=== PATIENT | female | born 1970 | race American Indian/Alaskan Native ===

== ENCOUNTER 2017-04-12 16:49 | Emergency (ER) | payer OTHER ==
[2017-04-12 16:59] VITALS: RESP 20
[2017-04-12] MEDS ORDERED: Sodium Chloride 0.9% 1,000 ML IV ONE (18:06)
--- NOTE | 2017-04-12 18:15 | C.PDOC ---
History Of Present Illness <Livia Burgess - Last Filed: 04/12/17 19:02> <Terrence Guevara - Last Filed: 04/12/17 20:17> 46 year old female presents to ED with complaints of vaginal bleeding for 14 days associated with pelvic cramping pain for 1 day. Patient states pain is worse on the left side and is non-radiating. Patient reports irregular menses for the last 3 months and is unsure of . She has history of fibroids and surgery. , LMP 12/2016. (Livia Burgess) History Per: Patient History/Exam Limitations: no limitations Onset/Duration Of Symptoms: Days Current Symptoms Are (Timing): Still Present Severity: Moderate Quality Of Discomfort: Cramping, "Pain" Associated Symptoms: denies: Fever, Chills, Nausea, Vomiting, Urinary Symptoms Alleviating Factors: None Recent travel outside of the [place]: No Abnormal Vaginal Bleeding: Yes <Livia Burgess - Last Filed: 04/12/17 19:02> <Terrence Guevara - Last Filed: 04/12/17 20:17> Time Seen by Provider: 04/12/17 18:06 Chief Complaint (Nursing): Abdominal Pain Past Medical History Reviewed: Historical Data, Nursing Documentation, Vital Signs - Medical History PMH: Hyperthyroidism Family History: States: Unknown Family Hx - Social History Hx Tobacco Use: No Hx Alcohol Use: Yes Hx Substance Use: Yes - Immunization History Hx Tetanus Toxoid Vaccination: No Hx Influenza Vaccination: No Hx Pneumococcal Vaccination: No <Livia Burgess - Last Filed: 04/12/17 19:02> Review Of Systems Constitutional: Negative for: Fever, Chills Gastrointestinal: Negative for: Nausea, Vomiting Genitourinary: Positive for: Vaginal Bleeding, Pelvic Pain. Negative for: Dysuria, Frequency, Hematuria <Livia Burgess - Last Filed: 04/12/17 19:02> Physical Exam - Physical Exam Appears: Non-toxic, No Acute Distress Skin: Warm, Dry, No Diaphoretic, No Pale, No Rash Head: Atraumatic, Normacephalic Eye(s): bilateral: Normal Inspection Nose: Normal Oral Mucosa: Moist Neck: Normal, Normal ROM, Supple Chest: Symmetrical Cardiovascular: Rhythm Regular, No Murmur Respiratory: Normal Breath Sounds, No Rales, No Rhonchi, No Wheezing Gastrointestinal/Abdominal: Normal Exam, Soft, No Tenderness, No Guarding, No Rebound Extremity: Bilateral: Atraumatic, Normal Color And Temperature, Normal ROM Neurological/Psych: Oriented x3, Normal Speech Gait: Steady <Livia Burgess - Last Filed: 04/12/17 19:02> ED Course And Treatment - Laboratory Results Result Diagrams: 04/12/17 18:41 O2 Sat by Pulse Oximetry: 96 (room air) Pulse Ox Interpretation: Normal <Livia Burgess - Last Filed: 04/12/17 19:02> - Laboratory Results Result Diagrams: 04/12/17 18:41 04/12/17 18:41 <Terrence Guevara - Last Filed: 04/12/17 20:17> Medical Decision Making <Livia Burgess - Last Filed: 04/12/17 19:02> <Terrence Guevara - Last Filed: 04/12/17 20:17> Medical Decision Making: Impression: 46 y.o female with pelvic pain Differential diagnosis includes but not limited to: cytitis, ectopic , ovarian cyst or torsion Plan: * Labs * Ultrasound * IV NS Progress: 1851 CBC shows normal H/H. UA shows negative Case signed out to Dr Guevara pending US, reassessment and dispo (Livia Burgess ) Upon provider reevaluation patient is feeling better, is medically stable, and requires no further treatment in the ED at this time. Patient will be discharged home with Rx for naproxen . Counseling was provided and all questions were answered regarding diagnosis and need for follow up dr jordan and technology risk intern. There is agreement to discharge plan. Return if symptoms persist or worsen. (Terrence Guevara) Disposition - Disposition Disposition Time: 19:03 - POA Present On Arrival: None <Livia Burgess - Last Filed: 04/12/17 19:02> Counseled Patient/Family Regarding: Studies Performed, Diagnosis, Need For Followup, Rx Given <Terrence Guevara - Last Filed: 04/12/17 20:17> - Disposition Referrals: Jamie Jordan MD [Medical Doctor] - Condition: FAIR Additional Instructions: Please follow up with your technology risk intern Prescriptions: Naproxen [Naprosyn] 1 tab PO BID PRN #25 tab PRN Reason: Pain Instructions: Uterine Fibroids (ED) - Clinical Impression Clinical Impression: Pelvic pain, Uterine fibroid - PA / MEDICATION CARE MANAGER / Resident Statement MD/DO has reviewed & agrees with the documentation as recorded. - Scribe Statement The provider has reviewed the documentation as recorded by the Scribe <Livia Burgess - Last Filed: 04/12/17 19:02> <Terrence Guevara - Last Filed: 04/12/17 20:17> - Scribe Statement Krunal Estrada All medical record entries made by the Scribe were at my direction and personally dictated by me. I have reviewed the chart and agree that the record accurately reflects my personal performance of the history, physical exam, medical decision making, and the department course for this patient. I have also personally directed, reviewed, and agree with the discharge instructions and disposition. (Livia Burgess) Physician Patient Turnover Patient Signed Over To: Terrence Guevara Handoff Comments: pending US and labs <Livia Burgess - Last Filed: 04/12/17 19:02>
[2017-04-12] MEDS ORDERED: Sodium Chloride 0.9% 1,000 ML ONE (18:30)
[2017-04-12 18:45] LABS: BASO # 0.1 K/uL (0.0-0.2); EOS # 0.1 K/uL (0.0-0.7); EOS % 1.2 % (0.0-4.0); HEMATOCRIT 43.4 % (34.0-47.0); LYMPH # 2.4 K/uL (1.0-4.3); LYMPH % 36.3 % (20.0-40.0); MEAN CELL VOLUME 87.3 fL (81.0-99.0); MEAN CORPUSCULAR HEMOGLOBIN 28.5 pg (27.0-31.0); MEAN CORPUSCULAR HGB CONC 32.6 g/dL (33.0-37.0); MONO # 0.7 K/uL (0.0-0.8); MONO % 10.9 % (0.0-10.0); NRBC % 0.1 % (0.0-2.0); RED CELL DISTRIBUTION WIDTH 14.7 % (11.5-14.5); WHITE BLOOD COUNT 6.6 K/uL (4.8-10.8)
[2017-04-12 18:50] LABS: URINE BILIRUBIN NEGATIVE (NEGATIVE); URINE BLOOD 2+ (NEGATIVE); URINE COLOR Straw (YELLOW); URINE GLUCOSE (UA) NORMAL (Normal); URINE KETONE NEGATIVE (NEGATIVE); URINE LEUKOCYTE ESTERASE NEG Leu/uL (Negative); URINE PROTEIN NEGATIVE (NEGATIVE); URINE UROBILINOGEN NORMAL mg/dL (0.2-1.0)
[2017-04-12 18:58] LABS: RBC URINE 2 /hpf (0-3)
[2017-04-12 19:05] LABS: CHLORIDE 105 mmol/L (98-107)
[2017-04-12 19:06] LABS: POTASSIUM 3.8 mmol/L (3.6-5.2); SODIUM 138 mmol/L (132-148)
[2017-04-12 19:08] LABS: BILIRUBIN,TOTAL 0.9 mg/dL (0.2-1.3); GFR AFRICAN-AMERICAN > 60
[2017-04-12 19:09] LABS: ALB/GLOB RATIO 1.1 (1.0-2.1); ALKALINE PHOSPHATASE 50 U/L (38-126); ALT/SGPT 8 U/L (9-52); AST/SGOT 36 U/L (14-36); BLOOD UREA NITROGEN 10 mg/dL (7-17); CARBON DIOXIDE 22 mmol/L (22-30); GLUCOSE,RANDOM 73 mg/dL (65-105); TOTAL PROTEIN 7.7 g/dL (6.3-8.3)
[2017-04-12 20:30] VITALS: BP 167/83; PULSE 67; TEMP 98.1; O2SAT 99
--- NOTE | 2017-04-13 09:23 | US ---
HISTORY: pain and bleeding x14 days COMPARISON: None available. TECHNIQUE: Transabdominal and transvaginal FINDINGS: UTERUS: Measures 10.2 x 7.5 x 7.3 cm. Multiple uterine fibroids identified, somewhat coarse calcification. Posterior intramural fibroid with peripheral calcification, 4.6 x 3.5 x 4.3 cm. Peripherally calcified mid uterine fibroid, 1.6 x 1.5 x 1.5 cm. Anterior intramural fibroid, 1.2 x 1.1 x 1.2 cm. Posterior subserosal fibroid, 1.3 x 1.2 x 1.3 cm. Lower uterine segment intramural fibroid, 1.6 x 1.4 x 2.1 cm. Likely additional fibroids present. ENDOMETRIUM: Measures 8 mm in diameter. Unremarkable. CERVIX: No cervical abnormality identified. RIGHT OVARY: Measures 2.2 x 1.1 x 2.4 cm. No solid mass. Normal flow. LEFT OVARY: Measures 2.1 x 1.5 x 2.4 cm. No solid mass. Normal flow. FREE FLUID: No significant free fluid noted. OTHER FINDINGS: None. IMPRESSION: Multiple uterine fibroids some with peripheral calcification. Otherwise unremarkable. Preliminary interpretation of this examination was reported by [facility] at 8:04 p.m. on 04/12/2017. There is concurrence of this report with the preliminary interpretation.
== END 2017-04-12 20:29 | disposition home or self-care (01) ==
LOC: C.ER 16:49
DX: R10.2 Pelvic and perineal pain (principal); D25.9 Leiomyoma of uterus, unspecified
CPT/HCPCS: 76830; 76856; 80053; 81001; 84702; 84703; 85025; 96360; 99285; J7040

== ENCOUNTER 2017-05-03 06:50 | Day surgery (SDC) | payer OTHER ==
[2017-05-03 07:03] VITALS: BMI 32.2
[2017-05-03] MEDS ORDERED: Midazolam 2 MG/2 ML VIAL ONE (07:27)
[2017-05-03] MEDS ORDERED: Propofol 10 mg/ml Inj (20 ML) ONE (07:27)
[2017-05-03] MEDS ORDERED: Lactated Ringer's 1,000 ML IV ONE ×2 (07:42)
[2017-05-03] MEDS ORDERED: cefOXitin IV 2 gm in Dextrose 2 GM/50 ML BAG IVPB ONE (07:55)
[2017-05-03] MEDS ORDERED: HYDROmorphone 0.5 mg/0.5 ml ISec IVP PRN (08:22)
[2017-05-03 10:46] VITALS: RESP 13; TEMP 98.2; O2SAT 99
[2017-05-03 11:01] VITALS: BP 122/73; PULSE 68
--- NOTE | 2017-05-20 12:22 | OP ---
Preoperative Diagnosis: Fibroid on uterine wall Procedure: Hysteroscopic Myomectomy, D&C of the uterus Findings: 1 cm myoma Surgeon: Dr. Navarro Estimated blood loss: 1 cc, no complications Procedure: Hysteroscopic myomectomy and D&C of the uterus. Risk and benefits from the procedure, include infection, hemorrhoid thrombosis, , PE, lung infection damage to small and large intestines anesthesia and complications: electrolytes imbalance, fluid edema embolism And other complications were discussed but are not listed above have been explained to the patient all questions answered informed consent was obtained. Patient was taken into the operative room in stable condition and suitable level of general anesthesia. The bladder was emptied. A weighted speculum was entered into the vagina, The of the cervix was grasped using a single tenaculum and an ECC was reformed and scant tissue obtained. The uterus was sounded to 7 com. The cervix was dilated to 16cm. A myosure device was inserted into the uterus and a 1cm right uterine myoma was resected with good hemostasis. At the end of the procedure gentle EMC was used to remove the debris. Instrument morataya removed from the vagina. Patient was taken to the recovery room in a stable condition. There were no complications. MTDD
== END 2017-05-03 11:00 | disposition home or self-care (01) ==
LOC: C.SDS 06:50
PROVIDERS: ATTEND Obstetrics & Gynecology Reproductive Endocrinology
DX: D25.9 Leiomyoma of uterus, unspecified (principal)
CPT/HCPCS: 36415; 58561; 86850; 86900; 88305; J0694; J1885; J2250; J2704; J3010; J7120